=== PATIENT | female | born 1985 | race African-American/Black ===

== ENCOUNTER 2022-06-17 07:56 | Outpatient (CLI) | payer BC ==
[2022-06-17] MEDS ORDERED: Iopamidol 300 61% 100 ML VIAL FS ONE (09:10)
== END 2022-06-17 07:57 | disposition home or self-care (01) ==
LOC: CSHCT 07:56
PROVIDERS: ATTEND Internal Medicine Gastroenterology
DX: M54.50 Low back pain, unspecified (principal); G89.29 Other chronic pain; R12 Heartburn; N28.9 Disorder of kidney and ureter, unspecified; N83.202 Unspecified ovarian cyst, left side; N63.10 Unspecified lump in the right breast, unspecified quadrant
CPT/HCPCS: 74177